=== PATIENT | female | born 2000 | race Caucasian/White ===

== ENCOUNTER 2023-07-19 13:56 | Emergency (ER) | payer OTHER, SELFPAY ==
[2023-07-19 13:57] VITALS: BP 136/77; PULSE 109; RESP 16; TEMP 36.3; O2SAT 100
--- NOTE | 2023-07-19 14:34 | ECG_ITS ---
Measurements Intervals [facility] Rate: 114 P: 32 MI: 100 QRS: 45 QRSD: 89 T: 35 QT: 352 QTc: 487 Interpretive Statements SINUS TACHYCARDIA WITH SHORT MI INTERVAL ABNORMAL RHYTHM ECG NO PREVIOUS ECG AVAILABLE FOR COMPARISON Electronically Signed On 07-19-2023 16:13:22 CDT by Arthur Coy M.D.
[2023-07-19 18:00] VITALS: BP 143/80; PULSE 105; RESP 20; O2SAT 100
[2023-07-19 19:02] LABS: Basophils Absolute Auto 0.1 K/mm3 (0.0-0.1); Basophils Percent Auto 0.6 % (0.2-1.2); Eosinophils Percent Auto 0.1 % (0-4.4); Hematocrit 42.5 % (37.0-47.0); Immature Granulocyte Absolute 0.03 K/mm3 (0.00-0.031); Immature Granulocyte Percent A 0.3 % (0-0.5); Lymphocytes Absolute Auto 2.79 K/mm3 (0.9-3.2); Lymphocytes Percent Auto 24.6 % (18.3-44.2); Mean Corpuscular HGB Conc 32.9 g/dl (32-36); Mean Corpuscular Hemoglobin 27.9 pg (26-34); Mean Corpuscular Volume 84.8 fl (80-100); Mean Platelet Volume 9.4 fl (7.4-10.4); Monocytes Absolute Auto 0.5 K/mm3 (0.1-0.6); Monocytes Percent Auto 4.4 % (2.6-8.5); Neutrophils Absolute Auto 7.9 K/mm3 (1.3-6.7); Platelet Count Result 515 k/mm3 (150-375); Red Blood Count 5.01 M/mm3 (4.2-5.4); Red Cell Distribution Width 13.8 % (11.5-14.5); White Blood Count 11.3 K/mm3 (4.5-10.0)
[2023-07-19 19:13] LABS: Alanine Aminotransferase 19 U/L (6-35); Albumin Level 4.8 g/dL (3.5-5.1); Alkaline Phosphatase 56 U/L (38-126); Anion Gap 10 mmol/L (8-16); Aspartate Amino Transferase 34 U/L (14-36); Bilirubin,Total 0.5 mg/dL (0.2-1.3); Blood Urea Nitrogen 11 mg/dL (7-17); Calcium 10.1 mg/dL (8.4-10.2); Carbon Dioxide 21 mmol/L (22-30); Chloride 106 mmol/L (98-107); Estimated CRCL calculation 115 ml/min; Estimated Glomerular Filt Rate > 60; Glucose 111 mg/dL (65-110); Magnesium 1.7 mg/dL (1.6-2.3); Potassium 3.7 mmol/L (3.4-5.0); Sodium 137 mmol/L (137-145)
[2023-07-19 19:20] LABS: D Dimer < 0.27 ug/mL (<0.48)
--- NOTE | 2023-07-19 19:26 | ED.ANXIETY ---
HPI - Anxiety General Chief Complaint: Anxiety Stated Complaint: anxiety Time Seen by Provider: 07/19/23 16:13 History of Present Illness HPI narrative: 23-year-old female presented to the emergency department for evaluation of suspected anxiety. Patient states she feels like her heart races and then this triggered the anxiety. Patient states it has been occurring with more frequency over the last few days and happened 3 times today. Patient states she does not drink very much water but does drink caffeine daily. Patient has no prior history of cardiac arrhythmias. Patient has no prior history of PE or DVT. Patient is not on control hormone replacement and patient denies any recent falls injuries or surgeries. Related Data Allergies Allergy/AdvReac Type Severity Reaction Status Date / Time No Known Allergies Allergy Verified 07/19/23 17:04 Review of Systems Review of Systems: All systems reviewed & are unremarkable except as noted in HPI and below PMFSH Social History Social History Substance use type: marijuana Exam Narrative: APPEARANCE: Well appearing, no pain, no distress, well-nourished. HEAD: normocephalic, atraumatic. EYES: PERRLA/EOMI, conjunctivae clear. NOSE: Normal no drainage EARS:TMS clear with good light reflex. THROAT: Pharynx clear, no exudate. NECK: Supple. No adenopathy, no masses. RESPIRATORY: Airway patent, respirations nonlabored. Clear to auscultation bilaterally, no rales, rhonchi, wheezing. CARDIOVASCULAR: Regular rate and rhythm without murmurs rubs or gallops. ABDOMINAL: Soft, nontender, nondistended, normal bowel sounds MUSCULOSKELETAL: Moves all extremities. Strength/ROM intact, No edema, No calf tenderness. NEURO: Alert. Cranial nerves II through XII intact. Grossly intact SKIN: Warm, dry. Normal Color Course Course Emergency Course: 23-year-old female presented the ED for evaluation of anxiety versus tachycardia. Patient had baseline labs drawn to evaluate for electrolyte abnormalities. Patient had no significant abnormalities patient had a normal TSH and a negative D-dimer. Patient was negative for COVID RSV and influenza. Patient's EKG shows a sinus tachycardia. Patient did feel improved with treatment and patient's heart rate was in the 80s at time of discharge. Patient was encouraged to decrease her caffeine intake and increase her water intake. Patient was comfortable with the plan for discharge and close follow-up Vital Signs Vital signs: Vital Signs Temperature 97.4 F L 07/19/23 13:57 Pulse Rate 109 H 07/19/23 13:57 Respiratory Rate 16 07/19/23 13:57 Blood Pressure 136/77 07/19/23 13:57 Pulse Oximetry 100 07/19/23 13:57 Oxygen Delivery Room Air 07/19/23 13:57 Temperature 97.4 F L 07/19/23 13:57 Pulse Rate 91 07/19/23 20:39 Respiratory Rate 17 07/19/23 20:39 Blood Pressure 139/85 07/19/23 20:39 Pulse Oximetry 100 07/19/23 20:39 Oxygen Delivery Room Air 07/19/23 13:57 MDM - Anxiety Lab Data Attestation: I reviewed the patient's lab results. 07/19/23 18:55 07/19/23 18:54 Labs: Lab Results 07/19/23 07/19/23 07/19/23 Range/Units 18:54 18:55 18:56 WBC 11.3 H (4.5-10.0) K/mm3 RBC 5.01 (4.2-5.4) M/mm3 Hgb 14.0 (12.0-15.0) g/dL Hct 42.5 (37.0-47.0) % MCV 84.8 (80-100) fl MCH 27.9 (26-34) pg MCHC 32.9 (32-36) g/dl RDW 13.8 (11.5-14.5) % Plt Count 515 H (150-375) k/mm3 MPV 9.4 (7.4-10.4) fl Immature Gran % (Auto) 0.3 (0-0.5) % Neut % (Auto) 70.0 (45.5-73.1) % Lymph % (Auto) 24.6 (18.3-44.2) % Lamb % (Auto) 4.4 (2.6-8.5) % Eos % (Auto) 0.1 (0-4.4) % Baso % (Auto) 0.6 (0.2-1.2) % Lymph # (Auto) 2.79 (0.9-3.2) K/mm3 Lamb # (Auto) 0.5 (0.1-0.6) K/mm3 Eos # (Auto) 0.0 (0-0.3) K/mm3 Baso # (Auto) 0.1 (0.0-0.1) K/mm3 Abs Immat Gran (auto) 0.03 (0.00-0.031) K/mm3 Absolute Neut
[2023-07-19 19:38] LABS: Influenza A QL RT-PCR Negative (Negative); Influenza B QL RT-PCR Negative (Negative); RSV RNA, RT-PCR Negative (Negative); SARS-CoV-2 RNA PCR Negative (Negative)
[2023-07-19] MEDS: SODIUM CHLORIDE 0.9% IV 1,000 ML 999 ML IV CONT (19:41)
[2023-07-19 20:39] VITALS: BP 139/85; PULSE 91; RESP 17; O2SAT 100
== END 2023-07-19 21:00 | disposition home or self-care (01) ==
PROVIDERS: Emergency Provider Emergency Medicine
DX: F41.9 Anxiety disorder, unspecified (principal); R00.0 Tachycardia, unspecified; Z20.822 Contact with and (suspected) exposure to COVID-19
CPT/HCPCS: 36415; 80053; 83735; 84443; 85025; 85380; 87637; 93005; 96360; 99283; J7030